=== PATIENT | female | born 1945 ===

== ENCOUNTER → 2017-06-13 | Outpatient (CLI) | payer MEDICARE, BC | LOC: LAB 16:26 | DX: S81.801A Unspecified open wound, right lower leg, initial encounter (principal) | CPT/HCPCS: 87070; 87077; 87186; 87205 ==

== ENCOUNTER → 2017-07-06 | Outpatient (CLI) | payer MEDICARE, BC | END | disposition home or self-care (01) | LOC: LAB 10:00 | DX: S81.801A Unspecified open wound, right lower leg, initial encounter (principal) | CPT/HCPCS: 87070; 87205 ==